=== PATIENT | male | born 1940 | race Caucasian/White ===

== ENCOUNTER 2021-04-01 18:46 | Inpatient (IN) | payer OTHER ==
[~2021-04-01] VITALS: Ht 180.3 cm; Wt 77.0 kg
--- NOTE | ~2021-04-01 | HC ---
[facility] [place] [address] CONSULTATION Name: BHAVANA TRUJILLO Room #: 216-P ADM IN M.R.#: [id number] Admission: 04/01/21 Attend Phys: Javi Smallwood MD Discharge: Date of : 42 Report #: [id number] THIS REPORT FOR: cc: FAM - Family physician unknown FAM - Family physician unknown Milad Simon MD ~ DATE OF SERVICE: 04/02/2021 HISTORY OF PRESENT ILLNESS: This is a 80-year-old male patient who does not provide any history. He appeared to be a paranoid. He thinks the whole hospital system is at scan. So, he did not provide any good history. I reviewed the records and I talked to the nurse looking after this patient. She has been able to reach some of the friends who indicated this is not the patient's baseline. Apparently, he lives in an assisted living and because of that, I suspect he must have some problem, but the problem is I am not sure. He had a fall and he was confused after that. I do not know what his baseline is. He was seen by [facility] yesterday and I reviewed those notes and he was not found to be a TPA candidate and I am not sure it was even a stroke by their evaluation. Subsequently, he was admitted here and I was given this consult actually by Dr. Hensley this evening and I saw the patient almost immediately after she gave me the consult. I talked to her about the patient before seeing and after seeing the patient. REVIEW OF SYSTEMS: Very difficult in this patient. I reviewed the records, but the patient does not provide any history. He thinks his memory is good, but on objective testing, his memory is not good. He denies any stroke, but difficult to tell if he had any TIA or any other symptoms before. CTA head was done by [facility] and it would appear CTA of the head was unremarkable. This was his relevant 14-point review of systems. I tried to carry out any more examination. He was very difficult to evaluate because he does not think much is wrong with it and he thinks the whole thing is scanned. He did not complain of any eye, ENT, cardiac, respiratory, GI, , musculoskeletal, constitutional, dermatological, hematological, psychiatric, throat, allergic symptom associated with present symptomatology. He says when he fell, he never hit his head and he does hit his shoulder. PAST MEDICAL HISTORY: According to him is negative for stroke. FAMILY HISTORY: Negative for early age stroke. SOCIAL HISTORY: He says he does not drink any alcohol. PHYSICAL EXAMINATION: The patient's examination was difficult because he is paranoid and he thinks it is scanned and he does want to cooperate. He did not know what month it is. He did not know what hospital he is in, and he said it is [facility]. Cranial nerve examination mostly looks unremarkable, but he did [facility] [address] [place] [address] CONSULTATION Name: BHAVANA TRUJILLO Room #: 216-P [facility] IN M.R.#: [id number] Admission: 04/01/21 Attend Phys: Javi Smallwood MD Discharge: Date of : 42 Report #: [id number] not do very well on visual field evaluation. He appeared to have a symmetrical strength. He said he can feel light touch on both sides. His reflexes were somewhat diminished. Plantars is mute. Tone is symmetrical. He has no thyroid mass. No carotid bruit. He did not cooperate with the fundus examination. There is no meningeal sign. His hearing and vision is adequate. He is reasonably well-developed individual. His pulses appear to be palpable. Cardiac examination is unremarkable. No respiratory difficulty was noticed. His blood pressure is 140/86, respirations 18, pulse is 92, temperature is 98. LABORATORY DATA: White count is 8.2. He had a CT__, which was reviewed and they were mostly unremarkable. IMPRESSION: Pretty difficult to form in this patient because I do not know what the baseline is, but I talked to Dr. Hensley that he needs further workup. I am going to do an EEG. He probably will need an MRI, but he is still paranoid. I do not think he will go there. He will need a psychiatric consult and we will see what it shows and then decide about further management. By: 1716 11 Milad Simon MD /nt
--- NOTE | ~2021-04-01 | HC ---
[facility] [place] [address] CONSULTATION Name: BHAVANA TRUJILLO Room #: 216-P ADM IN M.R.#: [id number] Admission: 04/01/21 Attend Phys: Javi Smallwood MD Discharge: Date of : 42 Report #: [id number] THIS REPORT FOR: cc: FAM - Family physician unknown FAM - Family physician unknown Milad Simon MD ~ DATE OF SERVICE: 04/03/2021 HISTORY OF PRESENT ILLNESS: This is a 80-year-old male patient whom I tried to see last night, but he was so paranoid that he will not let me do much. Subsequently, I have talked to the nurses. His paranoia has become somewhat better. I was also able to reach a couple of persons who provided some history. First, I called Miya Daniel. She provided some history, but she gave me another number and that number was for [place], . 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 Somebody has given him a place to live in a store and he was living there, but then he went to this another place 2 weeks ago where he is in assisted living. Around , he got ____ and he saw a neurologist in [facility]. They did a workup on him and the workup did include the MRI of the brain and EEG. Their diagnosis was that he has dementia, but they also thought he was also developing behavioral problems along with it. He does not drink much alcohol according to him and he has been in the assisted living now. He does not have any prior history of strokes the way I understand from this patient. He was seen by [facility], who did CT and CT angiogram, which does not show any evidence for any blockage. He had a fall, but I cannot tell about anything more about the fall in this patient. He denies any fall and talking to his power of litigation attorney associate, who actually visited him and had an in-person conversation with him. He thinks he is pretty back to his baseline. He is very soft spoken. According to him, it is his baseline. He likes to tell story, but his voice has become so soft that it is difficult to tell when he is telling the story or not and what he is telling, but if you pay attention, you can make it. As far as history of seizure is concerned, I am not even certain whether that has ever been documented, although he carries a diagnosis of seizure. During the evaluation here today, he has been found to have multiple electrolyte abnormalities, which is being corrected. His magnesium was low, but actually is high now. His LDL is high. His vitamin B12 is 378, which is somewhat on the lower side, but is normal. He does complain of shoulder pain. When I push him, he may complain of some neck pain, but it is difficult to tell. His examination was still very difficult. He talks very softly. When I asked him what month it is, I have a difficult time understanding him because he did not cooperate very well with the neuromuscular examination. Basically, he was fed at that time and [facility] [address] [place] [address] CONSULTATION Name: BHAVANA TRUJILLO Room #: 216-P ADM IN M.R.#: [id number] Admission: 04/01/21 Attend Phys: Jvai Smallwood MD Discharge: Date of : 42 Report #: [id number] refused to cooperate any further. His lab indicate that he has a Staph, but that may be contamination. There are multiple things, which need to be addressed in this patient. He apparently has dementia and he has become paranoid in the past and I will suggest psychiatric consult for that. If he does have real infection, then that may have caused some encephalopathy and made it worse. I am not certain about his seizure. He is on 1000 mg of Keppra twice a day when he is here. I do not know what his home medication is and I need to find out and I am trying to find out. He had a fall, but I cannot get a definite history of seizures at that time. It is possible that this Keppra was given to him by his neurologist because one of the records says that his home medication is 2000 mg of Keppra daily. I cannot confirm with anybody. Presently, I will leave him on the same medication. I cannot get a good history or exam on him. I am going to get a CT scan of the C-spine. The durable power of litigation attorney associate want us to not do the MRI at this time and that is reasonable because of the patient's dementia and the fact that he himself will not do it and he will require significant amount of sedation and the CT and CT angio is unlikely to change the treatment. We will respect those wishes. All of it was discussed with both friends in detail and I spent more than 35 minutes of time taking care of this patient today and majority was spent counseling and coordinating. By: 1605 31 Milad Simon MD /rosa elena
--- NOTE | ~2021-04-01 | EEG ---
[facility] [place] [address] ELECTROENCEPHALOGRAM Name: BHAVANA TRUJILLO Room #: 216-P ADM IN M.R.#: [id number] Admission: 04/01/21 Attend Phys: Javi Smallwood MD Discharge: Date of : 42 Report #: [id number] THIS REPORT FOR: //name// DATE OF SERVICE: 04/03/2021 This patient is being evaluated for altered mental status. EEG was done by placing the electrode by standard 10-20 system of electrode placement. Both referential and sequential montages were used for recording. Background activity in this patient's EEG is about 6 Hz and 20 microvolt. Photic stimulation is unremarkable. No active epileptiform activity was noticed. IMPRESSION: This is an abnormal EEG because it is disorganized and poorly formed. There is a nonspecific abnormality which can occur with encephalopathy, effect of psychotropic medication, dementia, etc. Clinical correlation is recommended. By: 1415 1423 Milad Simon MD /nt
[2021-04-01 18:52] VITALS: BP 133/78
--- NOTE | 2021-04-01 19:16 | NUR ---
PATIENT TO CT 191
[2021-04-01] MEDS ORDERED: ASA81BEC PO (19:17)
[2021-04-01] MEDS ORDERED: ATORVASTATIN CA80 MG PO (19:18)
[2021-04-01] MEDS ORDERED: KEPPRA100 MG/1 M PO (19:19)
[2021-04-01] MEDS ORDERED: FLOMAX0.4 MG PO (19:19)
--- NOTE | 2021-04-01 19:48 | NUR ---
pt uncooperative at this time. pt has tried to get off the ct bed 4 times. erp notified and orders received.
[2021-04-01 20:10] LABS: ABSOLUTE NEUTROPHILS 5.4 thou/uL (1.4-8.2); BASOPHILS 0.3 % (0.0-2.0); HEMATOCRIT 38.3 % (42.0-52.0); HEMOGLOBIN 13.1 gm/dL (14.0-18.0); LYMPHOCYTES 11.7 % (24.0-44.0); MCH 33.2 pg (26.0-34.0); MCHC 34.2 g/dL (28.0-37.0); MCV 97.3 fL (80.0-100.0); MONOCYTES 6.9 % (1.0-8.0); PLATELET COUNT 271 thou/uL (150-400); POLYS 81.1 % (36.0-66.0); RBC 3.94 mil/uL (4.50-6.00); RDW 12.9 % (10.5-14.5); WBC 6.6 thou/uL (4.0-11.0)
[2021-04-01 20:16] LABS: PROTIME 10.9 Seconds (10.5-12.1)
[2021-04-01 20:23] LABS: ALBUMIN 2.7 g/dL (3.4-5.0); CALCIUM 6.4 mg/dL (8.5-10.1); CREATININE 0.9 mg/dL (0.7-1.3); MAGNESIUM 1.5 mg/dL (1.8-2.4); TOTAL BILIRUBIN 0.3 mg/dL (0.2-1.0)
[2021-04-01 20:24] LABS: POTASSIUM 2.7 mmol/L (3.5-5.1)
[2021-04-01 20:57] LABS: BE(vivo) -1.3 mmol/L (-2 to +3); HCO3 22.6 mmol/L (22.0-26.0); PCO2 VENOUS 35.8 mmHg (41.0-51.0)
[2021-04-01 21:02] LABS: AMP/METHAMP Negative (Negative); BARBITURATES Negative (Negative); BENZODIAZEPINES Negative (Negative); COCAINE Negative (Negative); METHADONE Negative (Negative); OPIATES POSITIVE (Negative); PCP Negative (Negative)
[2021-04-01 21:10] LABS: URINE BILIRUBIN NEGATIVE (Negative); URINE BLOOD NEGATIVE (Negative); URINE CLARITY CLEAR; URINE COLOR YELLOW; URINE GLUCOSE-RANDOM* NEGATIVE (Negative); URINE KETONES NEGATIVE (Negative); URINE LEUKOCYTES-REFLEX NEGATIVE (Negative); URINE NITRITE-REFLEX NEGATIVE (Negative); URINE PROTEIN (DIPSTICK) NEGATIVE (Negative); URINE SPECIFIC GRAVITY >= 1.030 (1.005-1.035); URINE UROBILINOGEN 0.2 E.U./dl (0.2-1.0)
[2021-04-02 05:01] LABS: HEMATOCRIT 39.4 % (42.0-52.0); HEMOGLOBIN 13.1 gm/dL (14.0-18.0); MCH 32.5 pg (26.0-34.0); MCHC 33.4 g/dL (28.0-37.0); MCV 97.4 fL (80.0-100.0); RBC 4.04 mil/uL (4.50-6.00); WBC 8.2 thou/uL (4.0-11.0)
[2021-04-02 05:25] LABS: CHOLESTEROL 203 mg/dL (<200); HDL CHOLESTEROL 75 mg/dL (>40); LDL CHOLESTEROL 119 mg/dL (<100); TC:HDL 2.7 Ratio (Not establshd); TRIGLYCERIDE 46 mg/dL (<150); VLDL 9 mg/dL (<40)
[2021-04-02 05:31] LABS: CREATININE 1.3 mg/dL (0.7-1.3); MAGNESIUM 2.6 mg/dL (1.8-2.4)
[2021-04-02 05:36] LABS: CALCIUM 9.6 mg/dL (8.5-10.1); POTASSIUM 3.7 mmol/L (3.5-5.1)
[2021-04-02 05:37] LABS: SERUM ASSESSMENT Clear
[2021-04-02 09:11] VITALS: BP 141/65
--- NOTE | 2021-04-02 10:44 | NUR ---
REFER TO OT VARIANCE
--- NOTE | 2021-04-02 10:57 | EKG ---
[place] [address] [facility] [employer] [place] [address] ELECTROCARDIOGRAM REPORT Name: BHAVANA TRUJILLO Room #: 170-16 ADM IN M.R.#: [id number] Admission: 04/01/21 Attend Phys: Javi Smallwood MD Discharge: Date of : 42 Report #: [id number] [facility] ED Test Date: 2021-04-01 Test Time: 21:19:37 Pat Name: BHAVANA TRUJILLO Department: Room: 170 Gender: M Pharmacy Intake Coordinator: ilana : 1940 Requested By: Robert Siddiqui Order Number: [id number] MD: Arsalan Bethea Measurements Intervals [place] Rate: 99 P: 68 IL: 184 QRS: -1 QRSD: 123 T: 41 QT: 342 QTc: 439 Interpretive Statements Sinus rhythm Atrial premature complex Probable left atrial enlargement Right bundle branch block Baseline wander in lead(s) V2 No previous ECG available for comparison Electronically Signed On 04-02-2021 10:56:57 RECYCLABLE PRODUCTS SORTER by Arsalan Bethea [email or web address] <ELECTRONICALLY SIGNED> By: Arsalan Bethea MD 04/02/21 1056 18 18 Arsalan Bethea MD /DAVINA
[2021-04-02 13:27] VITALS: BP 141/65
[2021-04-02 15:24] VITALS: BP 123/78
[2021-04-02 16:40] VITALS: BP 140/86
--- NOTE | 2021-04-02 17:48 | NUR ---
ASSUMED CARE OF PATIENT AT 1555 FROM ER. REPORT RECEIVED. PATIENT ALERT TO SELF AND PLACE. PATIENT VERY CONFUSED AND PARANOID. HE BELIEVES THAT HE HAS BEEN KIDNAPPED. PATIENT HAS TRIED TO GET OUT OF BED MULTIPLE TIMES. PATIENT DOESN'T REASSURE VERY EASILY. HOSPITAL STAY HAS BEEN EXPLAINED TO THE PATIENT MULTIPLE TIMES BUT HE DOES NOT BELIEVE ME. NEURO HAS BEEN HERE TO SEE PATIENT. CONTACTED DPOA THROUGH PATIENT'S CELL PHONE AND SPOKE WITH HER, NATHALY HOYT. SHE OR HER PARTNER, ASHOK SAAVEDRA, WILL COME UP AND SIT WITH THE PATIENT. PATIENT REFUSED TO WEAR TELE AND KEEPS TAKING OFF HIS GOWN. BED ALARM SET AND CALL LIGHT WITHIN REACH. WILL CONTINUE TO MONITOR.
--- NOTE | 2021-04-02 20:34 | EKG ---
[place] [address] [facility] [place] [address] ELECTROCARDIOGRAM REPORT Name: BHAVANA TRUJILLO Room #: 216-P ADM IN M.R.#: [id number] Admission: 04/01/21 Attend Phys: Javi Smallwood MD Discharge: Date of : 42 Report #: [id number] [facility] ED Test Date: 2021-04-01 Test Time: 20:23:35 Pat Name: BHAVANA TRUJILLO Department: Room: 216 P Gender: M Cooker Loader: ilana : 1940 Requested By: Robert Siddiqui Order Number: [id number] MD: Sharif Givens Measurements Intervals [place] Rate: 108 P: 53 DC: 166 QRS: 44 QRSD: 117 T: 18 QT: 352 QTc: 472 Interpretive Statements Sinus tachycardia Incomplete right bundle branch block Low voltage, precordial leads Artifact in multiple lead(s) No previous ECG available for comparison Electronically Signed On 04-02-2021 20:34:28 CREATIVE ARTS MUSIC THERAPIST by Sharif Givens [email or web address] <ELECTRONICALLY SIGNED> By: Sharif Givens MD, [facility] 04/02/212033 22 22 Sharif Givens MD, FACC /EPI
[2021-04-02 20:38] VITALS: BP 120/61
--- NOTE | 2021-04-02 20:47 | 2DMMODE ---
[facility] [place] [place] [address] 2 D/M-MODE ECHOCARDIOGRAM Name: BHAVANA TRUJILLO Room #: 216-P ADM IN M.R.#: [id number] Admission: 04/01/21 Attend Phys: Javi Smallwood MD Discharge: Date of : 42 Report #: [id number] THIS REPORT FOR: cc: FAM - Family physician unknown FAM - Family physician unknown Sharif Givens MD [facility] ~ APPROVED REPORT Study performed: 04/02/2021 12:35:47 EXAM: Comprehensive 2D, Doppler, and color-flow Echocardiogram Patient Location: ER Room #: 16 Status: routine BSA: 2.12 HR: 93 bpm BP: 141/65 mmHg Rhythm: NSR Other Information Study Quality: Adequate Technically limited study due to uncooperative patient, inability to position patient. Indications CVA/TIA 2D Dimensions IVSd: 12.36 (7-11mm) LVOT Diam: 21.22 (18-24mm) LVDd: 39.52 mm PWd: 8.95 (7-11mm) Ascending Ao: 32.60 (22-36mm) LVDs: 29.40 (25-40mm) Left Atrium: 50.36 (27-40mm) Aortic Root: 32.97 mm Volumes Left Atrial Volume (Systole) Single Plane 4CH: 41.97 mL Single Plane 2CH: 74.42 mL Biplane LA Volume: 70.00 mL LA ESV Index: 32.00 mL/m2 Aortic Valve AoV Peak Orlin.: 1.66 m/s AO Peak Gr.: 12.10 mmHg LVOT Max P.53 mmHg LVOT Max V: 1.06 m/s [facility] [email or web address] [address] 2 D/M-MODE ECHOCARDIOGRAM Name: RONNIEBHAVANA BIGG Room #: 216-P [facility] IN [facility]#: [id number] Admission: 04/01/21 Attend Phys: Javi Smallwood MD Discharge: Date of : 42 Report #: [id number] KATIUSKA Vmax: 2.27 cm2 AI Vmax: 4.09 m/s AI Fannin: 3.30 m/s2 AI PHT: 363.03 ms Mitral Valve E/A Ratio: 0.7 MV Decel. Time: 1396.55 ms MV E Max Orlin.: 0.74 m/s MV A Orlin.: 1.07 m/s MV PHT: 405.00 ms IVRT: 93.43 ms Pulmonary Vein P Vein S: 0.52 m/s P Vein A: 0.38 m/s P Vein D: 0.32 m/s P Vein A Dur.: 138.4 msec P Vein S/D Ratio: 1.63 Tricuspid Valve TR Peak Orlin.: 2.05 m/s RAP Estimate: 7.00 mmHg TR Peak Gr.: 16.81 mmHg RVSP: 23.00 mmHg Left Ventricle The left ventricle is normal size. There is normal LV segmental wall motion. There is normal left ventricular wall thickness. Left ventricular systolic function is normal. The left ventricular ejection fraction is within the normal range. LVEF is 55-60%. Mild diastolic dysfunction Right Ventricle The right ventricle is normal size. The right ventricular systolic function is normal. Atria Left atrium is mildly dilated. No shunting by contrast bubble injection The right atrium size is normal. Aortic Valve Aortic valve is trileaflet, mildly calcified Mild aortic regurgitation. There is no aortic valvular stenosis. Mitral Valve The mitral valve is normal in structure. Mild mitral regurgitation. No evidence of mitral valve stenosis. Tricuspid Valve [facility] [address] [place] [address] 2 D/M-MODE ECHOCARDIOGRAM Name: BHAVANA TRUJILLO RUIDOSO Room #: 216-[facility] IN .R.#: [id number] Admission: 04/01/21 Attend Phys: Javi Smallwood MD Discharge: Date of : 42 Report #: [id number] The tricuspid valve is normal in structure. Trace tricuspid regurgitation. PAP 23 mmHg Pulmonic Valve The pulmonary valve is normal in structure. There is no pulmonic valvular regurgitation. Great Vessels The aortic root is normal in size. IVC is normal in size and collapses >50% with inspiration. Pericardium There is no pericardial effusion. There is no pleural effusion. <Conclusion> Left ventricular systolic function is normal. There is normal LV segmental wall motion. LVEF is 55-60%. Mild diastolic dysfunction No shunting by contrast bubble injection Aortic valve is trileaflet, mildly calcified. Mild aortic regurgitation, no stenosis. The mitral valve is normal in structure. Mild mitral regurgitation. Pulmonary artery pressure of 23 mmHg There is no pericardial effusion. <ELECTRONICALLY SIGNED> By: Sharif Givens MD, FACC 04/02/212046 46 46 Sharif Givens MD, FACC /INF
[2021-04-03 03:26] LABS: ABSOLUTE NEUTROPHILS 5.7 thou/uL (1.4-8.2); BASOPHILS 0.5 % (0.0-2.0); EOSINOPHILS 0.2 % (0.0-3.0); HEMATOCRIT 36.8 % (42.0-52.0); HEMOGLOBIN 12.5 gm/dL (14.0-18.0); LYMPHOCYTES 13.3 % (24.0-44.0); MCH 32.9 pg (26.0-34.0); MCV 96.7 fL (80.0-100.0); MONOCYTES 10.8 % (1.0-8.0); POLYS 75.2 % (36.0-66.0); RDW 12.6 % (10.5-14.5); WBC 7.5 thou/uL (4.0-11.0)
[2021-04-03 03:29] LABS: PLATELET COUNT 220 thou/uL (150-400)
[2021-04-03 04:08] LABS: CALCIUM 8.7 mg/dL (8.5-10.1); CREATININE 1.2 mg/dL (0.7-1.3); POTASSIUM 3.5 mmol/L (3.5-5.1)
[2021-04-03 07:07] LABS: GLYCOHEMOGLOBIN (HGB A1C) 5.6 % (4.8-5.6)
[2021-04-03 07:07] LABS: ABSOLUTE RETIC COUNT 0.0428 10^6/uL; OBSERVED RETIC COUNT 1.13 % (0.6-2.6)
[2021-04-03 07:24] LABS: % SATURATION 24 % (20-39); IRON 52 ug/dL (65-175); TIBC 216 ug/dL (250-450)
--- NOTE | 2021-04-03 08:23 | NUR ---
ASSESSMENTS CHARTED, MEDS CHARTED GIVEN. PATIENT IN BED TOTALLY NAKED, AGUIRRE IN PLACE. REFUSING TO WEAR TELEMETRY UNIT. REFUSING FALL PRECAUTION BAND AND SOCKS. FREQUENTLY TRYING TO CLIMB OVER RAILINGS TO LEAVE. DOES NOT BELIEVE HE IS IN THE HOSPITAL. PATIENT PULLED HIS IV OUT, NEW IV WAS PLACED. LAB CALLED STATING HIS BLOOD CULTURE CAME BACK POSITIVE FOR GRAM (+) COCCI. NOTIFIED TUCKPOINTER. PATIENT FINALLY FELL ASLEEP FOR REMAINDER FO THE SHIFT.
[2021-04-03 08:41] VITALS: BP 108/67
[2021-04-03 08:56] LABS: URINE BILIRUBIN NEGATIVE (Negative); URINE BLOOD 3+ (Negative); URINE CLARITY CLEAR; URINE COLOR YELLOW; URINE GLUCOSE-RANDOM* NEGATIVE (Negative); URINE KETONES NEGATIVE (Negative); URINE NITRITE-REFLEX NEGATIVE (Negative); URINE PROTEIN (DIPSTICK) NEGATIVE (Negative); URINE SPECIFIC GRAVITY 1.025 (1.005-1.035); URINE UROBILINOGEN 0.2 E.U./dl (0.2-1.0)
[2021-04-03 08:57] LABS: URINE LEUKOCYTES-REFLEX 1+ (Negative)
[2021-04-03 09:07] LABS: BACTERIA-REFLEX 1-9 Few /HPF (None Seen); CASTS None Seen /LPF (None Seen); CRYSTALS None Seen /LPF (None Seen); SQUAMOUS 0-3 Few /LPF (0-3); URINE RBC >20 Many /HPF (NONE SEEN); URINE WBC-REFLEX 0-5 Rare /HPF (0-5)
[2021-04-03 12:38] VITALS: BP 120/72
[2021-04-03 16:19] VITALS: BP 103/62
[2021-04-03 19:32] VITALS: BP 107/62
[2021-04-03 20:13] VITALS: BP 117/69
--- NOTE | 2021-04-04 04:00 | NUR ---
Assumed pt care at 1900. Pt is alert and oriented but forgetful. No sign of distress noted. Fall precaution in place. Assessment completed and documented. Scheduled meds administered to pt. Tolerated PO intake. CAT C-SPINE completed. No sign of distress noted through the night. Continue to monitor. No further needs at this time.
[2021-04-04 05:55] VITALS: BP 122/52
[2021-04-04 07:22] LABS: ABSOLUTE NEUTROPHILS 3.5 thou/uL (1.4-8.2); BASOPHILS 0.6 % (0.0-2.0); EOSINOPHILS 1.6 % (0.0-3.0); HEMATOCRIT 36.5 % (42.0-52.0); HEMOGLOBIN 12.4 gm/dL (14.0-18.0); LYMPHOCYTES 14.9 % (24.0-44.0); MCH 32.8 pg (26.0-34.0); MCV 96.4 fL (80.0-100.0); MONOCYTES 12.4 % (1.0-8.0); PLATELET COUNT 225 thou/uL (150-400); POLYS 70.5 % (36.0-66.0); RBC 3.79 mil/uL (4.50-6.00); RDW 12.8 % (10.5-14.5)
[2021-04-04 07:26] VITALS: BP 124/66
[2021-04-04 07:44] LABS: CALCIUM 8.3 mg/dL (8.5-10.1); MAGNESIUM 2.2 mg/dL (1.8-2.4); PHOSPHORUS 3.4 mg/dL (2.5-4.9); POTASSIUM 3.8 mmol/L (3.5-5.1)
--- NOTE | 2021-04-04 10:50 | NUR ---
Assumed care of pt this AM. Pt is A&O x4, on RA, SR on the monitor. Pt states that he doesn't think he's doing well as he's not as "jovial" as he normally is. Plan for US abd & EGD today. Pt has medical DPOA, Collins, p# [phone]. Pt reports pain in throat. High fall precautions in place. Frequent rounding.
[2021-04-04 11:20] VITALS: BP 117/70
--- NOTE | 2021-04-04 13:40 | NUR ---
Pt vitamin D level 378, recommend supplementation
[2021-04-04 13:49] VITALS: BP 115/80
[2021-04-04 15:27] VITALS: BP 123/80
--- NOTE | 2021-04-04 16:56 | NUR ---
PATIENT ADMITTED FOR AMS, APHASIA. CHART REVIEWED AND DISCUSSED WITH CARE TEAM. CM MET WITH PT THIS DAY. CM ROLE INTRODUCED. PT ALERT BUT FORGETFUL. ABLE TO TELL CM HIS PRIMARY CONTACT IS A FRIEND ASHOK. HE REPORTS IT OKAY FOR THIS CM TO VISIT WITH HIM REGARDING HIS CARES. PT REMEMBER HE WAS IN THE PROCESS OF MOVING INTO A SMALLER PLACE BUT DOES NOT REMEMBER WHERE. HE REPORTS HE HAS CHILDREN AND SPOUSE ALTHOUGH THEY DO NOT TALK TO HIM. PT REPORTS HIS PCP IS JAYLYN ARMSTRONG WITH [facility]. CM UNABLE TO REACH PT CONTACT BILL THIS DAY. WILL CONTINUE TO REACH OUT AND FOLLOW FOR DC PLANNING.
[2021-04-04 19:26] VITALS: BP 99/68
[2021-04-05 00:34] VITALS: BP 106/50
[2021-04-05] MEDS ORDERED: FOLIC ACID1 MG PO (03:35)
[2021-04-05] MEDS ORDERED: VITAMIN B-125000 MCG SUBLING (03:35)
[2021-04-05] MEDS ORDERED: PROSCAR 5MG TABL5 M1 PO (03:35)
--- NOTE | 2021-04-05 04:13 | NUR ---
RECEIVED PATIENT AT 1900. PATIENT ALERT AND ORIENTED X4. UP WITH ASSIST. HAS AGUIRRE. FORGETFUL AND IMPULSIVE. C/O MILD PAIN AND REFUSES MED. SLEPT MOST OF NIGHT.
[2021-04-05 04:19] VITALS: BP 114/57
[2021-04-05 08:00] VITALS: BP 145/79
--- NOTE | 2021-04-05 08:08 | HC ---
[facility] [place] [address] CONSULTATION Name: BHAVANA TRUJILLO Room #: 216-P ADM IN M.R.#: [id number] Admission: 04/01/21 Attend Phys: Kirsten Hensley MD Discharge: Date of : 42 Report #: [id number] THIS REPORT FOR: cc: FAM - Family physician unknown FAM - Family physician unknown Ben Oseguera MD ~ DATE OF SERVICE: 04/04/2021 INFECTIOUS DISEASE CONSULTATION ATTENDING PHYSICIAN: Dr. Smallwood. REASON FOR EVALUATION: Positive blood culture with isolation of Gram-positive cocci. HISTORY OF PRESENT ILLNESS: Chart reviewed. The patient examined. This is a 80-year-old gentleman who was admitted through the Emergency Room subsequent to a fall, had complained of some shoulder pain. Also was noted to be encephalopathic. He was unable to give any details. He did notice some speech difficulties as well. Apparently, has an issue with seizures. He takes Keppra. Evaluation was undertaken including imaging of the head and neck, no acute processes noted. Urinalysis was otherwise unremarkable. Coronavirus testing was negative, was found to be hypokalemic, ____ 2.7. Chest x-ray showed some chronic changes, nothing acute. Blood cultures were collected at time of admission, now with growth of gram-positive cocci, 1 out of 2. He was initiated on therapy with ceftriaxone and vancomycin. At this point, he complains about right shoulder pain. ____ he is unaware of antecedent fevers and did have some chills. No significant pulmonary or gastrointestinal related complaints, had been diminished appetite, however. ALLERGIES: None known. CURRENT MEDICATIONS: Include vancomycin, finasteride, potassium, famotidine, aspirin, tamsulosin, folic acid, ceftriaxone, levetiracetam, p.r.n. analgesics and acetaminophen. PAST MEDICAL HISTORY: Hyperlipidemia, seizure disorder and BPH. SOCIAL AND FAMILY HISTORY: Available in chart. REVIEW OF SYSTEMS: Otherwise, unremarkable except as noted above. PHYSICAL EXAMINATION: GENERAL: He is alert, cooperative and in moderate distress. He is generally lucid, appears to be reasonably well nourished. VITAL SIGNS: Temperature 97.7, pulse 66, respirations 16, blood pressure [facility] [address] [place] [address] CONSULTATION Name: BHAVANA TRUJILLO Room #: 216-P [facility] IN M.R.#: [id number] Admission: 04/01/21 Attend Phys: Kirsten Hensley MD Discharge: Date of : 42 Report #: [id number] 124/66. SKIN: Warm, dry, no rashes. HEENT: Otherwise, unremarkable. NECK: Supple. Normocephalic. Extraocular muscles intact. No sinus tenderness. LUNGS: Diminished breath sounds. Few scattered crackles. HEART: Regular, has a soft systolic murmur. ABDOMEN: Slightly distended, somewhat firm, nontender. There are no peritoneal signs. GENITOURINARY AND RECTAL: Deferred. LABORATORY DATA: Urine culture sterile thus far. Most recent electrolytes; sodium 140, potassium ____, bicarbonate is 25, anion gap of 9, BUN and creatinine 22 and 1.0, glucose of 108. CBC: White count of 5.0, H and H 12.4 and 36.5, platelets of 225. CT of the C-spine showed no acute osseous abnormalities, does have advanced multilevel degenerative cervical spondylosis, circumferential wall thickening of the upper esophagus suggesting esophagitis. Followup urinalysis shows some red cells, 0-5 white cells. Blood cultures described above 1 out of 2 with Gram-positive cocci. CBC most recently white count of 7.5, H and H of 12.5 and 36.8, platelets of 220. Echo; left ventricular ejection fraction of 55-60%, mild aortic regurgitation and mild mitral regurgitation. ASSESSMENT AND PLAN: Positive blood culture in the setting of a fall, encephalopathy. At this point, the evidence probably favors a false positive or contaminant. Ideally, identification of the organism should give us some additional information. I think it is reasonable to continue empiric therapy. At this point, I do not see a focus of pyogenic infection specifically typical sites of the lungs and urinary tract. He does have an ultrasound of the abdomen pending. At this point, he is overall improved, although he does state he is quite generally uncomfortable due to pain in particular the right shoulder ____ of a fall. We will add incentive spirometry. ____ collect a sputum sample. <ELECTRONICALLY SIGNED> By: Ben Oseguera MD 04/05/21 0808 0857 36 Ben Oseguera MD /nt
[2021-04-05 12:00] VITALS: BP 108/65
--- NOTE | 2021-04-05 12:33 | NUR ---
Assumede care of pt this AM. Pt is A&O x4, on RA. Pt continues to be off telemetry w/ refusal. Pt states that he is claustrophobic & will need medication to do MRI. One time ativan received & given to pt for MRI. NIH score remains 0 from yesterday. High fall precautions in place.
--- NOTE | 2021-04-05 16:46 | NUR ---
NURSING STAFF REPORTED PT WAS ATTEMPTING TO LEAVE AMA THIS AFTERNOON. THERAPY INDICATED AN ONGOING ASSESSMENT FOR DISCHARGE RECOMMENDATIONS. PT RECOMMENDING HOME OR HH. OT RECOMMENDING SNF. PT NOT MEDICALLY STABLE TO DC AT THIS TIME. NURSING STAFF INDICATED THEY SPOKE TO DR LOZANO WHOM INDICATED THE SAME AND NOT AGREEABLE TO WRITING DISCHARGE INSTRUCTIONS. JONNY SPOKE TO ERON PTS FINANCIAL DPOA. INFORMED OF PTS ATTEMPT TO LEAVE AMA. PROVIDED FAMILY WITH UPDATE PT NOT MEDICALLY STABLE TO DC. ERON INDICATED SHE WOULD PREFER PT STAY UNTILL READY TO DISCHARGE SAFELY BACK TO [facility]. JONNY SPOKE TO NURSING STAFF REQUESTING CONVERSATION WITH PT ABOUT STAYING WITHOUT LEAVING AMA. JONNY UNABLE TO REACH NURSING STAFF THEY WERE ATTENDING TO PT. SPOKE TO CN. SHE IS AWARE OF PLAN TO SPEAKING TO PT ABOUT STAYING AND WILL DISCUSS POSSIBLE DC TOMORROW. PERHAPS ONE MORE NIGHT WILL LESSEN PTS ANXIETY ABOUT WANTING TO LEAVE AMA. ERON UPDATED AGAIN. CM SPOKE ATTEMPT TO SPEAK WITH [facility]. INSTRUCTED TO SPEAK WITH MISTY. RECIEVED VOICEMAIL THAT WAS FULL. FINALLY JONNY SPOKE TO CN ON UNIT AGAIN. SHE INFORMED NURSING STAFF STILL WITH PT AND LOOKS IF PT MAY BE AGREEABLE TO STAYING. JONNY WILL CONTINUE TO FOLLOW FOR DC PLANNING.
--- NOTE | 2021-04-05 18:06 | PATH ---
[facility] [address] [place] [address] PATHOLOGY RPT PROCEDURE Name: BHAVANA ROMAN BIGG Room #: 216-P ADM IN M.R.#: [id number] Admission: 04/01/21 Date of : 44 Discharge: Report #: [id number] Path Case #: [id number] [facility] Accession Number: [id number] . 01 Material submitted: . gastrointestinal site - GASTRIC ANTRUM R/O H. PYLORI . 01 Clinical history: . ESOPHAGOGASTRODUODENOSCOPY ABNORMAL IMAGING ESOPHAGITIS, HIATAL HERNIA, GASTRITIS . 02 Diagnosis: Stomach "gastric antrum", biopsy: - Gastric antral and oxyntic mucosa with features of reactive gastropathy. - Negative for active inflammation, intestinal metaplasia, dysplasia, and malignancy. - Negative for Helicobacter pylori. (DILLON:karan; 04/05/2021) QTP 04/05/2021 1717 Local . 02 Electronically signed: . Norma Mccabe MD, Pathologist NPI- [id number] . 01 Gross description: . The specimen is received in formalin, labeled "Bhavana Roman, gastric antrum, rule out H. pylori". Received are 2 segments of pale le tissue measuring 0.2 and 0.5 cm in maximum dimensions. The specimen is entirely submitted in cassette A1. ([facility]; 04/04/2021) NRI/NRI 04/04/20212031 Local . 02 Microscopic: . Immunohistochemical stain results (properly controlled) Helicobacter pylori (A1) - Negative for organisms. (MLK:pit; 04/05/2021) . 02 Pathologist provided ICD-10: K20.90, K44.9, K29.70 . 02 CPT . 585553, [id number] Specimen Comment: A courtesy copy of this report has been sent to [phone] Specimen Comment: [phone] [address] PATHOLOGY RPT PROCEDURE Name: BHAVANA ROMAN Room #: 216-P [facility] IN [facility].#: [id number] Admission: 04/01/21 Date of : 44 Discharge: Report #: [id number] Path Case #: [id number] Specimen Comment: Report sent to / DR CARROLL Performed at: 01 [facility] [place] [address], [place], [place] [id number] MD Marko Juan MD Phone: [phone] Performed at: [address], [place], [place] [id number] MD Natan Dunbar MD Phone: [phone]
[2021-04-05 20:15] VITALS: BP 126/69
[2021-04-06] VITALS (8 sets, daily range): BP systolic 108–129; BP diastolic 61–76
--- NOTE | 2021-04-06 05:03 | NUR ---
PATIENT AAOX2 RESTING IN HIS ROOM. HE EXHIBITS MILD CONFUSION BUT HAS BEEN MOSTLY APPROPRIATE. HE DID HAVE ONE EPISODE WHERE HE WAS CONFUSED AND TRIED TO GET OUT OF BED. HE STATES THAT HE WOULD LIKE FOR HIS AGUIRRE TO BE REMOVED. PATIENT JASPAL ARRIOLA CAME TO VISIT AND STATES THAT HE WOULD LIKE FOR THE PATIENT TO BE WITHOUT CATHETER AND CONTINENT BEFORE BEING DISCHARGED. PT VSS. DENIES PAIN OR NEEDS. WILL CONTINUE TO MONITOR FOR CHANGES IN STATUS.
--- NOTE | 2021-04-06 13:42 | NUR ---
CM SPOKE TO PTS DAUGHTER REGARDING DISCHARGE PLANNING. DAUGHTER INFORMED PT WOULD DISCHARGE HOME WITH AGUIRRE CATHETER AND FOLLOW UP APPTS. PTS DAUGHTER VERBALIZED UNDERSTANDING. PT DISCHARGING HOME AND AGREEABLE TO [facility]. TIMOTHY SAXENA HERE TO VISIT PT AND ANSWER QUESTIONS. RECEIVED SCRIPT FROM PHYSICIAN FOR [facility]. DELIVERED TO PTS ROOM PRIOR TO DISCHARGE. RN AWARE. PTS DAUGHTER ALSO AWARE. PT IS RETURNING TO [facility]. DAUGHTER TO TRANSPORT PT HOME. NO FURTHER CM INTERVENTIONS INDICATED AT THIS TIME.
--- NOTE | 2021-04-06 16:06 | NUR ---
[facility] TO DC HOME. CM CALLED TO SPEAK MISTY DIRECTOR OF FINANCIAL AID. THIS CM CALLED AND LEFT A MESSAGE FOR MISTY YESTERDAY AND THIS AM WITH NO RETURN CALL. JONNY CALLED TO SPEAK TO MISTY REGARDING ASSESSMENT NEEDING COMPLETE PRIOR TO DC. WAS INFORMED BY FACILITY STAFF HE WAS NOT AVAILABLE AND ASKED IF I WANTED HIS VOICE MAIL. JONNY INDICATED TO CALLER NECESSITY OF NEEDING TO SPEAK TO MISTY REGARDING PT DISCHARGING THIS EVENING AND IMPORTANCE OF NEEDING TO SPEAK WITH HIM. MISTY AT THAT TIME ANSWERED. HE INFORMED THIS PT NEEDED A COMMUNITY BASED ASSESSMENT TO COMPLETED PRIOR TO DISCHARGE BACK AND THEY ARE UNABLE TO ACCEPT PT THIS EVENING. JONNY INFORMED MISTY OF MY MESSAGE LEFT TO HIM YESTERDAY AND THIS MORNING AT WHICH TIME WAS INFORMED DISCUSSION OF POSS DC TODAY. PT NOW READY TO DC AND HAVING TO HOLD BED WITH PTS WAITING TO BE ADMITTED UNTIL THIS ASSESSMENT CAN BE COMPLETED. MISTY INDICATED HE WOULD HAVE A NURSE OUT IN THE MORNING AT 1000AM TO COMPLETE ASSESSMENT. MISTY ALSO INDICATED HE WOULD NOTIFY PT MEDICAL MIRNA ALCOCER. NURSING STAFF AWARE. PHYSICIAN AWARE. CM WILL CONTINUE TO FOLLOW.
[2021-04-07 02:30] LABS: HEMATOCRIT 36.9 % (42.0-52.0); HEMOGLOBIN 12.6 gm/dL (14.0-18.0); MCH 32.6 pg (26.0-34.0); MCHC 34.3 g/dL (28.0-37.0); MCV 95.2 fL (80.0-100.0); RBC 3.87 mil/uL (4.50-6.00); RDW 12.5 % (10.5-14.5); WBC 5.8 thou/uL (4.0-11.0)
[2021-04-07 02:45] LABS: CALCIUM 8.5 mg/dL (8.5-10.1); CREATININE 1.1 mg/dL (0.7-1.3); POTASSIUM 3.9 mmol/L (3.5-5.1)
[2021-04-07 05:30] VITALS: BP 112/63
--- NOTE | 2021-04-07 07:02 | NUR ---
PATIENT AAOX2 RESTING IN HIS ROOM. VSS. DENIES PAIN OR NEEDS. ALL SAFETY PRECAUTIONS IN PLACE. PATIENT STATES THAT HE IS READY TO TRANSFER TODAY. AGUIRRE REMAINS IN PLACE. NO S/S OF DISTRESS NOTED. WILL CONTINUIE TO MONITOR.
--- NOTE | 2021-04-07 12:22 | NUR ---
JONNY CALLED TO SPEAK WITH MISTY WITH [facility] REGARDING RESULTS OF MENTAL EXAM THEY PERFORMED AND REQUIRED PRIOR TO DC. WAS TRANSFERRED TO [facility]. [facility] INFORMED CM PT PASSED EXAM AND READY TO DC BACK TO [facility]. PT MEDICALLY STABLE TO DC. CM CALLED TO SPEAK TO ZEINAB SHAY. HE IS AWARE. HE WAS CONCERNED ABOUT DC TEACHING ON EMPTYING CATH BAG. JONNY SPOKE TO NURSING LUCY WHO INFORMED SHE WOULD PERFORM TEACHING PRIOR TO DC. ZEINAB INFORMED PTS RIDE ON THEIR WAY. NO FUTHER CM INTERVENTIONS NEEDED.
[2021-04-07 12:39] VITALS: BP 129/61
[2021-04-07 12:44] VITALS: BP 121/76
--- NOTE | 2021-04-07 13:29 | NUR ---
PT HAD ONSITE ASSESSMENT FROM FACILITY THIS AM AND AGREED TO HAVE PATIENT RETURN. PT DISCHARGING WITH AGUIRRE CATHETHER. LEG BAG IN PLACE AND BEDSIDE BAG SENT HOME WITH PATIENT. PT DEMONSTRATED UNDERSTANDING AND HAS WRITTEN INSTRUCTION WELL. PT TO BE PICKED UP BY FRIEND JAMES. SCRIPTS SENT TO [facility].
== END 2021-04-07 14:07 | disposition home health service (06) | DRG 391 ==
LOC: ER 18:46 → EROBS 21:53 → 2N 21:53 → EROBS 04-02 08:14 → 2N 04-02 15:26
PROVIDERS: Emergency Medicine; Hospitalist; Nurse Practitioner Family; ADMIT Internal Medicine; ATTEND Internal Medicine
PROC: 0DB68ZX Excision of Stomach, Via Natural or Artificial Opening Endoscopic, Diagnostic (ICD-10-PCS; principal; 2021-04-04)
DX: K20.90 Esophagitis, unspecified without bleeding (principal); G93.41 Metabolic encephalopathy; E43 Unspecified severe protein-calorie malnutrition; N17.9 Acute kidney failure, unspecified; R47.01 Aphasia; R78.81 Bacteremia; E87.6 Hypokalemia; K44.9 Diaphragmatic hernia without obstruction or gangrene; B95.7 Other staphylococcus as the cause of diseases classified elsewhere; Z20.822 Contact with and (suspected) exposure to COVID-19; N18.30 Chronic kidney disease, stage 3 unspecified; M16.10 Unilateral primary osteoarthritis, unspecified hip; D64.9 Anemia, unspecified; G40.909 Epilepsy, unspecified, not intractable, without status epilepticus; W18.39XA Other fall on same level, initial encounter; Y93.89 Activity, other specified; Y92.89 Other specified places as the place of occurrence of the external cause; Y99.8 Other external cause status; Z68.23 Body mass index [BMI] 23.0-23.9, adult; N40.1 Benign prostatic hyperplasia with lower urinary tract symptoms; R33.8 Other retention of urine; K29.70 Gastritis, unspecified, without bleeding; E78.5 Hyperlipidemia, unspecified; E53.8 Deficiency of other specified B group vitamins; G20 Parkinson's disease; F02.80 Dementia in other diseases classified elsewhere, unspecified severity, without behavioral disturbance, psychotic disturbance, mood disturbance, and anxiety
CPT/HCPCS: 10081; 10797; 62110; 62900; 70005